=== PATIENT | male | born 1950 | race Caucasian/White ===

== ENCOUNTER → 2021-12-21 | Outpatient (CLI) | payer MEDICARE, OTHER ==
[~2021-12-21] MED LIST: CRESTOR40 MG PO; FEOSOL325 MG PO; GLUCOPHAGE500 MG PO; GLUCOTROL XL 5 M5 MG PO; MOBIC15 MG PO; NORVASC10 MG PO; PRINIVIL20 MG PO; TENORMIN100 MG PO; TRICOR145 MG PO; VITAMIN B-121000 MCG PO; ZANTAC150 MG PO; ZETIA 10 MG TAB10 MG PO; ZYLOPRIM 300 M300 MG PO
== END ==
LOC: KOH-I 13:45
DX: M79.671 Pain in right foot (principal); M79.672 Pain in left foot; M19.072 Primary osteoarthritis, left ankle and foot; M19.071 Primary osteoarthritis, right ankle and foot
CPT/HCPCS: 73630